=== PATIENT | female | born 1965 | race Caucasian/White ===

== ENCOUNTER → 2018-05-01 | Outpatient (REF) | payer BC ==
[2018-05-01 17:58] LABS: C REACTIVE PROTEIN QUANTITATIV 0.52 MG/DL (0.00-0.30); RHEUMATOID FACTOR QUANT < 10.0 IU/ML (<15.0)
[2018-05-03 14:44] LABS: ANTINUCLEAR ANTIBODIES DIRECT Negative (Negative)
== END ==
LOC: M LAB REF 16:41
PROVIDERS: ATTEND Nurse Practitioner Family
DX: M25.50 Pain in unspecified joint (principal)

== ENCOUNTER 2018-05-23 07:28 | Emergency (ER) | payer BC ==
[~2018-05-23] VITALS: Ht 152.4 cm; Wt 85.9 kg
[2018-05-23] MEDS ORDERED: STOO100C PO (07:33)
[2018-05-23] MEDS ORDERED: NS 1,000 ML IV SCH (07:46)
[2018-05-23] MEDS ORDERED: ONDANSETRON 4MG/2ML VIAL (J2405) IV ONE (08:00)
[2018-05-23] MEDS: MORPHINE 4 MG/ML 1ML VIAL/SYRINGE (J2270) IV PRN ×2 (08:02→09:00)
[2018-05-23 08:20] LABS: BASO # 0.1 10^3/uL (0.0-0.2); BASO % 0.9 % (0.0-1.0); EOS # 0.2 10^3/uL (0.0-0.50); EOS % 2.6 % (0.0-3.0); HEMATOCRIT 44.8 % (36.0-47.0); HEMOGLOBIN 15.1 g/dl (12.0-15.5); LYMPH # 1.5 10^3/uL (1.5-4.5); LYMPH % 25.6 % (24.0-44.0); MEAN CORPUSCULAR HEMOGLOBIN 30.6 pg (27.0-33.0); MEAN CORPUSCULAR HGB CONC 33.7 g/dl (32.0-36.5); MEAN CORPUSCULAR VOLUME 90.7 fl (80.0-96.0); MONO # 0.5 10^3/uL (0.0-0.8); MONO % 8.5 % (0.0-5.0); NEUTROPHILS # 3.6 10^3/uL (1.8-7.7); NEUTROPHILS % 61.9 % (36.0-66.0); PLATELET COUNT, AUTOMATED 270 10^3/uL (150-450); RED BLOOD COUNT 4.94 10^6/uL (4.00-5.40); WHITE BLOOD COUNT 5.8 10^3/uL (4.0-10.0)
[2018-05-23 08:52] LABS: INR 0.91; PROTHROMBIN TIME 12.3 SECONDS (12.1-14.4)
[2018-05-23 08:53] LABS: ALBUMIN 3.7 GM/DL (3.2-5.2); ALT/SGPT 31 U/L (12-78); BILIRUBIN,DIRECT 0.1 MG/DL (0.0-0.2); BILIRUBIN,TOTAL 0.3 MG/DL (0.2-1.0); BLOOD UREA NITROGEN 10 MG/DL (7-18); CALCIUM LEVEL 9.8 MG/DL (8.5-10.1); CARBON DIOXIDE LEVEL 27 MEQ/L (21-32); CHLORIDE LEVEL 103 MEQ/L (98-107); CPK CREATINE PHOSPHOKINASE 122 U/L (26-192); CREATININE FOR GFR 0.72 MG/DL (0.55-1.30); GLOMERULAR FILTRATION RATE > 60.0 (>51); GLUCOSE, FASTING 106 MG/DL (70-100); LIPASE 148 U/L (73-393); MB/CK RELATIVE INDEX 1.89 (< OR =4); SODIUM LEVEL 140 MEQ/L (136-145); TOTAL PROTEIN 6.8 GM/DL (6.4-8.2); TROPONIN I < 0.02 NG/ML (< 0.10)
[2018-05-23] MEDS ORDERED: ISOVUE-370 76% 100ML VIAL (Q9967) As Ordered ONE (09:16)
--- NOTE | 2018-05-23 09:50 | REP ---
CT of the abdomen and pelvis with IV contrast, without bowel contrast: There are no comparisons. There is focal induration along the anterior margin of the sigmoid colon adjacent to multiple sigmoid diverticula, compatible with acute diverticulitis. There is no focal fluid collection to suggest abscess. There is no ascites. There is no pneumoperitoneum. The visualized lung dong are unremarkable. The hepatic parenchyma is homogeneous unremarkable. There are multiple gallbladder calculi. The pancreas and spleen are unremarkable. The adrenals and kidneys are unremarkable. The abdominal aorta is unremarkable. No retroperitoneal adenopathy. Pelvis: There is no ascites or adenopathy. The bladder is unremarkable. There is a hysterectomy. Vaginal cuff and adnexa are unremarkable. The appendix and terminal ileum are unremarkable. Impression: Acute diverticulitis of the mid sigmoid colon. There is no associated focal fluid collection to suggest abscess. Electronically Signed by Hilton Ireland MD 05/23/2018 09:41 A
[2018-05-23] MEDS ORDERED: PERCOCET 5MG/325MG TAB PO ONE ×2 (10:00→12:00)
[2018-05-23] MEDS ORDERED: FLAG500T PO (10:42)
[2018-05-23] MEDS ORDERED: CIPR-249 PO (10:42)
[2018-05-23] MEDS ORDERED: PERC5TAB12 PO (10:43)
[2018-05-23] MEDS ORDERED: ZOFR4TAB16 PO (10:44)
[2018-05-23 11:51] VITALS: BP 134/67
[2018-05-23] MEDS ORDERED: ONDANSETRON 4 MG ORAL DISINTEGRATING TAB (Q0162 PER 1MG) PO ONE (12:00)
[2018-05-23] MEDS ORDERED: CIPROFLOXACIN 500 MG TAB PO ONE (12:00)
[2018-05-23] MEDS ORDERED: metroNIDAZOLE (FLAGYL) 500 MG TAB PO ONE (12:00)
--- NOTE | 2018-05-23 17:08 | ECGEPIP ---
Stationary ECG Study [facility] - ED Test Date: 2018-05-23 Pat Name: DARRYL JOHNSON Department: Room: - Gender: F Broke Handler: ROMARIO : 1965 Requested By: Maddy Ann Order Number: [id number] Reading MD: Foster Forman Measurements Intervals Bangs Rate: 52 P: 29 WV: 167 QRS: -20 QRSD: 90 T: -15 QT: 400 QTc: 373 Interpretive Statements SINUS BRADYCARDIA POSSIBLE LEFT ATRIAL ENLARGEMENT NSTTW ABNORMALITIES NO PRIORS FOR COMPARISON Electronically Signed On 05-23-2018 17:08:02 EST by Foster Forman
== END 2018-05-23 12:08 | disposition home or self-care (01) ==
LOC: M ED 07:28
DX: K57.32 Diverticulitis of large intestine without perforation or abscess without bleeding (principal); K59.09 Other constipation; Z85.43 Personal history of malignant neoplasm of ovary; Z87.891 Personal history of nicotine dependence; Z90.710 Acquired absence of both cervix and uterus; Z98.51 Tubal ligation status; Z79.899 Other long term (current) drug therapy
CPT/HCPCS: 74177; 80048; 80076; 82550; 82553; 83605; 83690; 84484; 85025; 85610; 93005; 96374; 96375; 96376; 99284; J2270; J2405; Q0162; Q9967

== ENCOUNTER → 2018-06-12 | Outpatient (CLI) | payer BC ==
[~2018-06-12] MED LIST: CIPR-249 PO; FLAG500T PO; PERC5TAB12 PO; STOO100C PO; ZOFR4TAB16 PO
--- NOTE | 2018-06-13 05:26 | REP ---
Clinical: Right upper abdominal pain. Technique: Real time mazariegos scale ultrasound examination using curved array transducer. Findings: Liver is increased echogenicity suggesting fatty infiltration without focal hepatic lesion identified. The pancreas is normal. The gallbladder demonstrates multiple mobile and suspected non mobile gallstones adherent to the gallbladder fundus (less likely representing tumor effective sludge or mass) along with layering sludge and possible small polyps up to 3 mm. No pericholecystic fluid. No sonographic Mittal's sign. The right kidney is normal in reniform shape without hydronephrosis and measures 11.9 x 6.6 x 4.7 cm. No ascites. Impression: 1. Hepatic steatosis without focal hepatic lesion. 2. Cholelithiasis including likely gallstones/tumor effective sludge adherent to the fundal wall. Electronically Signed by Franck King MD 06/13/2018 05:18 A
== END ==
LOC: M RAD 07:59
PROVIDERS: ATTEND Physician Assistant Medical
DX: K76.0 Fatty (change of) liver, not elsewhere classified (principal); K80.00 Calculus of gallbladder with acute cholecystitis without obstruction

== ENCOUNTER 2018-07-31 06:04 | Day surgery (SDC) | payer BC ==
[~2018-07-31] VITALS: Ht 152.4 cm; Wt 82.6 kg
[~2018-07-31 06:04] MED LIST changes: +GUMMCHW PO
[2018-07-31] MEDS ORDERED: ceFAZolin SOD 1 GM in D5W MINI-BAG PLUS 50 ML IV ONE (07:00)
[2018-07-31] MEDS ORDERED: BUPIVACAINE/EPIN 0.25% 30 ML VIAL As Ordered ONE (07:10)
[2018-07-31] MEDS ORDERED: dexameTHASONE 4 MG/ML 1ML VIAL (J1100) As Ordered ONE (07:47)
[2018-07-31] MEDS ORDERED: ONDANSETRON 4MG/2ML VIAL (J2405) As Ordered ONE (07:47)
[2018-07-31] MEDS ORDERED: ROCURONIUM BROMIDE 50 MG/5 ML VIAL As Ordered ONE (07:47)
[2018-07-31] MEDS ORDERED: SUGAMMADEX SODIUM 500 MG/5 ML VIAL (BRIDION) As Ordered ONE (07:47)
[2018-07-31] MEDS ORDERED: METOCLOPRAMIDE INJ 10MG/2ML VIAL (J2765) As Ordered ONE (07:47)
[2018-07-31] MEDS ORDERED: fentaNYL 250 MCG/5 ML INJECTION (J3010) As Ordered ONE (07:47)
[2018-07-31] MEDS ORDERED: LIDOCAINE 2% INJ 100 MG/5 ML SDV (FOR ANES.) As Ordered ONE (07:47)
[2018-07-31] MEDS ORDERED: MIDAZOLAM INJ 2 MG/2 ML VIAL (J2250) As Ordered ONE (07:47)
[2018-07-31] MEDS ORDERED: PHENYLephrine HCL 500 MCG/5 ML (100MCG/ML) SYRINGE (J2370) As Ordered ONE (07:47)
[2018-07-31] MEDS ORDERED: PROPOFOL 200 MG/20 ML VIAL As Ordered ONE (07:47)
[2018-07-31] MEDS ORDERED: ePHEDrine SULFATE 25 MG/5 ML(5MG/ML) SYRINGE As Ordered ONE (08:00)
[2018-07-31] MEDS ORDERED: KETOROLAC 60 MG/2 ML VIAL (J1885) As Ordered ONE (08:00)
[2018-07-31] MEDS ORDERED: LR 1,000 ML IV ONE (08:00)
[2018-07-31] MEDS ORDERED: ACETAMINOPHEN 1000MG 100ML IV BTL (OFIRMEV) (J0131 PER 10MG) As Ordered ONE (08:11)
[2018-07-31] MEDS ORDERED: PERCOCET 5MG/325MG TAB PO PRN (09:00)
[2018-07-31] MEDS ORDERED: fentaNYL 100 MCG/2 ML INJECTION (J3010) IV PRN (09:00)
[2018-07-31] MEDS ORDERED: MORPHINE 4 MG/ML 1ML VIAL/SYRINGE (J2270) IV PRN (09:00)
[2018-07-31] MEDS ORDERED: NORCO, ANEXSIA 5/325MG TABLET (HYDROcodone/ACETAMINOPHEN) PO PRN (09:00)
[2018-07-31] MEDS ORDERED: METOCLOPRAMIDE INJ 10MG/2ML VIAL (J2765) IV PRN (09:00)
[2018-07-31] MEDS ORDERED: ONDANSETRON 4MG/2ML VIAL (J2405) IV PRN ×2 (09:00)
[2018-07-31] MEDS ORDERED: LR 1,000 ML IV SCH ×2 (09:00)
[2018-07-31] MEDS ORDERED: MEPERIDINE INJ 25 MG/ML VIAL (J2175) IV PRN (09:00)
[2018-07-31 10:30] VITALS: BP 129/77
== END 2018-07-31 10:42 | disposition home or self-care (01) ==
LOC: M SDC 06:04
PROVIDERS: ATTEND Surgery
DX: K80.18 Calculus of gallbladder with other cholecystitis without obstruction (principal)
CPT/HCPCS: 47562; 88304; J0131; J0690; J1100; J1885; J2250; J2370; J2405; J2765; J3010

== ENCOUNTER 2018-09-13 07:35 | Day surgery (SDC) | payer BC ==
[~2018-09-13] VITALS: Ht 152.4 cm; Wt 80.7 kg
[~2018-09-13 07:35] MED LIST changes: +IBUP-1114 PO; +NS 1,000 ML IV ONE
[2018-09-13] MEDS ORDERED: LIDOCAINE 2% INJ 100 MG/5 ML SDV (FOR ANES.) As Ordered ONE (08:37)
[2018-09-13] MEDS ORDERED: PROPOFOL 200 MG/20 ML VIAL As Ordered ONE (08:37)
[2018-09-13] MEDS ORDERED: fentaNYL 100 MCG/2 ML INJECTION (J3010) As Ordered ONE (09:01)
--- NOTE | 2018-09-13 09:42 | ROOR ---
Patient Name: Liliam Santiago Procedure Date: 09/13/2018 9:14 AM Date of : 1965 Age: 52 Room: [facility] Gender: Female Note Status: Finalized Procedure: Upper GI endoscopy Indications: Suspected esophageal reflux Providers: Ephraim Forbes Jr, MD Referring MD: Bee MAR MD Requesting Provider: Medicines: Propofol per Anesthesia Complications: No immediate complications. Procedure: Pre-Anesthesia Assessment: - Prior to the procedure, a History and Physical was performed, and patient medications and allergies were reviewed. The patient is competent. The risks and benefits of the procedure and the sedation options and risks were discussed with the patient. All questions were answered and informed consent was obtained. Patient identification and proposed procedure were verified by the physician and the nurse in the pre-procedure area and in the procedure room. Mental Status Examination: alert and oriented. Airway Examination: normal oropharyngeal airway and neck mobility. Respiratory Examination: clear to auscultation. CV Examination: normal. ASA Grade Assessment: II - A patient with mild systemic disease. After reviewing the risks and benefits, the patient was deemed in satisfactory condition to undergo the procedure. The anesthesia plan was to use moderate sedation / analgesia (conscious sedation). Immediately prior to administration of medications, the patient was re-assessed for adequacy to receive sedatives. The heart rate, respiratory rate, oxygen saturations, blood pressure, adequacy of pulmonary ventilation, and response to care were monitored throughout the procedure. The physical status of the patient was re-assessed after the procedure. The Endoscope was introduced through the mouth, and advanced to the second part of duodenum. The upper GI endoscopy was accomplished without difficulty. The patient tolerated the procedure well. Findings: The upper third of the esophagus, middle third of the esophagus and lower third of the esophagus were normal. The gastroesophageal junction, cardia, gastric fundus, gastric body, gastric antrum, prepyloric region of the stomach and pylorus were normal. The duodenal bulb, first portion of the duodenum and second portion of the duodenum were normal. Impression: - Normal upper third of esophagus, middle third of esophagus and lower third of esophagus. - Normal gastroesophageal junction, cardia, gastric fundus, gastric body, antrum, prepyloric region of the stomach and pylorus. - Normal duodenal bulb, first portion of the duodenum and second portion of the duodenum. - No specimens collected. Recommendation: - Discharge patient to home (ambulatory). - Return to my office as previously scheduled. Ephraim Forbes MD Ephraim Forbes Jr, MD 09/13/2018 9:42:15 AM Electronically signed by Ephraim Forbes Jr, MD Number of Addenda: 0 Note Initiated On: 09/13/2018 9:14 AM Estimated Blood Loss: Estimated blood loss: none.
--- NOTE | 2018-09-13 09:45 | ROOR ---
Patient Name: Liliam Santiago Procedure Date: 09/13/2018 9:16 AM Date of : 1965 Age: 52 Room: [facility] Gender: Female Note Status: Finalized Procedure: Colonoscopy Indications: Follow-up of diverticulitis Providers: Ephraim Forbes Jr, MD Referring MD: Bee MAR MD Requesting Provider: Medicines: Propofol per Anesthesia Complications: No immediate complications. Procedure: Pre-Anesthesia Assessment: - Prior to the procedure, a History and Physical was performed, and patient medications and allergies were reviewed. The patient is competent. The risks and benefits of the procedure and the sedation options and risks were discussed with the patient. All questions were answered and informed consent was obtained. Patient identification and proposed procedure were verified by the physician and the nurse in the pre-procedure area and in the procedure room. Mental Status Examination: alert and oriented. Airway Examination: normal oropharyngeal airway and neck mobility. Respiratory Examination: clear to auscultation. CV Examination: normal. ASA Grade Assessment: II - A patient with mild systemic disease. After reviewing the risks and benefits, the patient was deemed in satisfactory condition to undergo the procedure. The anesthesia plan was to use moderate sedation / analgesia (conscious sedation). Immediately prior to administration of medications, the patient was re-assessed for adequacy to receive sedatives. The heart rate, respiratory rate, oxygen saturations, blood pressure, adequacy of pulmonary ventilation, and response to care were monitored throughout the procedure. The physical status of the patient was re-assessed after the procedure. The Colonoscope was introduced through the anus and advanced to the cecum, identified by appendiceal orifice and ileocecal valve. The colonoscopy was performed without difficulty. The patient tolerated the procedure well. The quality of the bowel preparation was adequate. Findings: The rectum, recto-sigmoid colon, transverse colon, ascending colon, cecum, appendiceal orifice and ileocecal valve appeared normal. Multiple small and large-mouthed diverticula were found in the sigmoid colon. A diminutive polyp was found in the descending colon. The polyp was hyperplastic. The polyp was removed with a cold snare. Resection and retrieval were complete. Impression: - The rectum, recto-sigmoid colon, transverse colon, ascending colon, cecum, appendiceal orifice and ileocecal valve are normal. - Diverticulosis in the sigmoid colon. - One diminutive polyp in the descending colon, removed with a cold snare. Resected and retrieved. Recommendation: - Discharge patient to home (ambulatory). - Repeat colonoscopy in 5-10 years for surveillance based on pathology results. Ephraim Forbes MD Ephraim Forbes Jr, MD 09/13/2018 9:44:57 AM Electronically signed by Ephraim Forbes Jr, MD Number of Addenda: 0 Note Initiated On: 09/13/2018 9:16 AM Estimated Blood Loss: Estimated blood loss: none.
[2018-09-13 10:05] VITALS: BP 125/80
== END 2018-09-13 10:16 | disposition home or self-care (01) ==
LOC: M OPP 07:35
PROVIDERS: ATTEND Surgery
DX: D12.4 Benign neoplasm of descending colon (principal); K57.32 Diverticulitis of large intestine without perforation or abscess without bleeding; K21.9 Gastro-esophageal reflux disease without esophagitis; K57.30 Diverticulosis of large intestine without perforation or abscess without bleeding; Z87.891 Personal history of nicotine dependence
CPT/HCPCS: 43235; 45385; 88305; J3010

== ENCOUNTER → 2019-12-23 | Outpatient (CLI) | payer BC ==
[~2019-12-23] MED LIST changes: +MM S100C PO; -NS 1,000 ML IV ONE; -STOO100C PO
--- NOTE | 2019-12-23 16:47 | REPMRS ---
Patient History The patient states she had a clinical breast exam in 2019. Patient is postmenopausal and has history of ovarian cancer at age 38. Family history of breast cancer in maternal grandmother, ovarian cancer in mother. Digital Woman Screen Mammo: December 23, 2019 - Exam #: [id number] Bilateral CC and MLO view(s) were taken. Technologist: Leslie Gabriel, Technologist Prior study comparison: June 11, 2018, bilateral digital mammo screening bilat, performed at [facility]. May 11, 2017, bilateral digital mammo screening bilat, performed at [facility]. FINDINGS: There are scattered fibroglandular densities. The Volpara volumetric breast density category is:B. There has been no change in the appearance of the mammogram from the prior studies. There is a mild amount of scattered fibroglandular density which is fairly symmetric. There is no interval development of dominant mass, architectural distortion, or grouped microcalcification suggestive of malignancy. 3-D tomosynthesis shows no additional findings. Assessment: BI-RADS/ACR category 1 mammogram. Negative Mammogram. Recommendation Breast MRI of both breasts in 6 months. Routine screening mammogram of both breasts in 1 year (for women over age 40). This patient's Lifetime Breast Cancer Risk is estimated at 32.8 %. Annual screening Breast MRI scanniing is recommended for patient's whose lifetime risk assessment is over 20%. This mammogram was interpreted with the aid of an FDA-approved computer-aided dectection system. Electronically Signed By: Jermain Hernandez MD 12/23/19 [id number]
== END ==
LOC: M WHC 11:11
PROVIDERS: ATTEND Internal Medicine
DX: Z12.31 Encounter for screening mammogram for malignant neoplasm of breast (principal); Z78.0 Asymptomatic menopausal state; Z85.43 Personal history of malignant neoplasm of ovary; Z80.41 Family history of malignant neoplasm of ovary